=== PATIENT | male | born 1945 ===

== ENCOUNTER 2017-06-05 06:34 | Day surgery (SDC) | payer BC ==
[2017-06-05 06:34] VITALS: BMI 30.2
--- NOTE | 2017-06-05 07:20 | ED PDOC ---
Arrival/HPI - General Chief Complaint: Chest Pain Time Seen by Provider: 06/05/17 07:04 Historian: Patient, Family - History of Present Illness Narrative History of Present Illness (Text): you were treated in the ED today for hx of HTN, HL, DM,. CAD with x3 stents and had abnormal myocardial spect perfusion test with 72% ejection fraction and now having about 1 day of right/mid-sternal chest pain which is sharp, intermittent but otherwise without any nausea/vomiting/headache/dizziness/chest pain/abdomen pain/numbness/tingling/loss of limb function/pain with urination/ travel/prior blood clots/cancer/drug use/smoking. 06/05/17 07:18 Time/Duration: 24 hours Symptom Onset: Gradual Symptom Course: Intermittent Quality: Aching, Other (sharp) Severity Level: 2 Activities at Onset: Rest Context: Sitting Past Medical History - Provider Review Nursing Documentation Reviewed: Yes - Travel History Have you recently traveled outside [place] w/in the past 3 mons?: No - Infectious Disease Hx of Infectious Diseases: None - Cardiac Hx TX: Yes Hx Hypertension: Yes - Neurological Hx Paralysis: No - Hematological/Oncological Hx Blood Transfusions: No Hx Blood Transfusion Reaction: No - Musculoskeletal/Rheumatological Hx Musculoskeletal Disorders: No - Psychiatric Hx Emotional Abuse: No Hx Physical Abuse: No Hx Substance Use: No - Surgical History Hx Cardiac Catheterization: Yes (stent) - Anesthesia Hx Anesthesia Reactions: No Hx Malignant Hyperthermia: No - Suicidal Assessment Feels Threatened In Home Enviroment: No Family/Social History - Physician Review Nursing Documentation Reviewed: Yes Family/Social History: No Known Family HX Smoking Status: Unknown If Ever Smoked Hx Alcohol Use: No Hx Substance Use: No Allergies/Home Meds Allergies/Adverse Reactions: Allergies No Known Allergies Allergy (Verified 09/10/12 08:38) Home Medications: Home Meds Medication Instructions Recorded Confirmed Atorvastatin Calcium 40 mg PO DAILY 09/10/12 06/05/17 Clopidogrel [Plavix] 75 mg PO DAILY 09/10/12 06/05/17 Fenofibric Acid (Choline) 160 mg PO DAILY 09/10/12 06/05/17 [Trilipix] Glimepiride 4 mg PO BID 09/10/12 06/05/17 Ezetimibe [Zetia] 10 mg PO DAILY 09/01/14 06/05/17 Metformin HCl [Metformin] 1,000 mg PO BID 09/01/14 06/05/17 Aspirin [Aspirin Chewable] 81 mg PO DAILY 06/05/17 06/05/17 Azilsartan Med/Chlorthalidone 1 tab PO DAILY 06/05/17 06/05/17 [Edarbyclor 40-25 mg Tablet] Empagliflozin [Jardiance] 25 mg PO DAILY 06/05/17 06/05/17 amLODIPine [Norvasc] 5 mg PO DAILY 06/05/17 06/05/17 Review of Systems - Review of Systems Constitutional: Normal Eyes: Normal ENT: Normal Respiratory: Normal Cardiovascular: Chest Pain Gastrointestinal: Normal Genitourinary Male: Normal Musculoskeletal: Normal Skin: Normal Neurological: Normal Endocrine: Normal Hemo/Lymphatic: Normal Psychiatric: Normal Physical Exam Vital Signs Reviewed: Yes Vital Signs Temp Pulse Resp BP Pulse Ox 06/05/17 07:47 97.9 F 86 18 116/62 94 L Appearance: Positive for: Well-Appearing, Non-Toxic, Comfortable Pain Distress: Mild Mental Status: Positive for: Alert and Oriented X 3 - Systems Exam Head: Present: Atraumatic, Normocephalic Pupils: Present: PERRL Extroacular Muscles: Present: EOMI Conjunctiva: Present: Normal Ears: Present: Normal Mouth: Present: Moist Mucous Membranes Pharnyx: Present: Normal Nose (Internal): Present: Normal Inspection Neck: Present: Normal Range of Motion Respiratory/Chest: Present: Clear to Auscultation, Good Air Exchange Cardiovascular: No: Regular Rate and Rhythm, Murmurs, Normal S1, S2, Irregular Rhythm, Peripheal Pulses Present, Tachycardic, Bradycardic, Rub, Gallop, Muffled , Other Back: Present: Normal Inspection Upper Extremity: Present: Normal Inspection Lower Extremity: Present: Normal Inspection Neurological: Present: GCS=15, CN II-XII Intact, Speech Normal, Motor Func Grossly Intact Skin: Present: Warm, Normal Color Psychiatric: Present: Alert, Oriented x 3, Normal Insight, Normal Concentration Medical Decision Making ED Course and Treatment: you were treated in the ED today for hx of HTN, HL, DM,. CAD with x3 stents and takes aspirin 81mg and plavix 75mg daily but didn't take today and had abnormal myocardial spect perfusion test with 72% ejection fraction 12/21/15 and now having about 1 day of right/mid-sternal chest pain which is sharp, intermittent but otherwise without any nausea/vomiting/headache/dizziness/chest pain/abdomen pain/numbness/tingling/loss of limb function/pain with urination/travel/prior blood clots/cancer/drug use/smoking. You were otherwise breathing easily, smiling and talking with your and daughter, good strength/sensation, walking easily, clear lungs, no abdomen tenderness, no fever temp 97.9, stable heart rate 86, stable breathing rate 18, stable oxygen level 94% room air, stable blood pressure 116/62 which we recommend repeat in 2-3 days primary care office to determine further treatment, you have blood tests no infection count 8 , stable blood level hemoglobin 16/platelets 309, stable chemistry, except for bun 36/creatinine 1.8 increased from prior 1.2, heart blood test 0.02, radiology chest xray no acute, ECG sinus rhythm, aspirin, plavix, observation done in the ED with improvement, d/w Dr. Caruso who accepted for cath procedure and will coordinate post-procedure admission Reassessment Condition: Re-examined, Improved - Lab Interpretations Lab Results: 06/05/17 06:53 06/05/17 06:53 Lab Results 06/05/17 06:53: PT 11.0, INR 0.96, APTT 35.9 06/05/17 06:53: Sodium 141, Potassium 3.6, Chloride 106, Carbon Dioxide 23, Anion Gap 16, BUN 28 H, Creatinine 1.8 H, Est GFR ( Amer) 45, Est GFR ( Non-Af Amer) 37, Random Glucose 136 H, Calcium 8.9, Magnesium 2.3 H, Total Bilirubin 0.5, AST 25, ALT 30, Alkaline Phosphatase 75, Lactate Dehydrogenase 311 L, Total Creatine Kinase 153, Troponin I Pending, NT-Pro-B Natriuret Pep Pending, Total Protein 7.5, Albumin 4.2, Globulin 3.3, Albumin/Globulin Ratio 1.3 06/05/17 06:53: WBC 8.5, RBC 5.65, Hgb 16.3, Hct 48.0, MCV 85.0, MCH 28.8, MCHC 34.0, RDW 14.7 H, Plt Count 309, MPV 9.5, Gran % 47.7 L, Lymph % (Auto) 30.0, [place] % (Auto) 6.4 H, Eos % (Auto) 15.4 H, Baso % (Auto) 0.5, Gran # 4.05, Lymph # (Auto) 2.6, [place] # (Auto) 0.5, Eos # (Auto) 1.3 H, Baso # (Auto) 0.04 I have reviewed the lab results: Yes - RAD Interpretation Radiology Orders: 06/05/17 07:16 CHEST PORTABLE [RAD] Stat Refrigeration Supervisor: ED Physician (cxr no acute), Radiologist - EKG Interpretation Interpreted by ED Physician: Yes (SR with PVCs, flipped t waves avr, avl) Type: 12 lead EKG - Medication Orders Current Medication Orders: Discontinued Medications Aspirin (Aspirin) 325 mg PO STAT STA Stop: 06/05/17 07:16 Clopidogrel Bisulfate (Plavix) 75 mg PO STAT STA Stop: 06/05/17 07:18 - Scribe Statement The provider has reviewed the documentation as recorded by the Scribe Disposition/Present on Arrival - Present on Arrival Any Indicators Present on Arrival: No History of DVT/PE: No History of Uncontrolled Diabetes: No Urinary Catheter: No History of Decub. Ulcer: No History Surgical Site Infection Following: None - Disposition Have Diagnosis and Disposition been Completed?: Yes Diagnosis: Chest pain Disposition: HOSPITALIZED Disposition Time: 08:10 Patient Plan: Admission, Telemetry Condition: IMPROVED Discharge Instructions (ExitCare): Chest Pain (ED) Forms: [employer] (I[place]ic)
[2017-06-05 07:36] LABS: BASO # 0.04 K/mm3 (0.0-2.0); BASO % 0.5 % (0.0-3.0); EOS # 1.3 (0.0-0.7); EOS % 15.4 % (1.5-5.0); GRAN # 4.05 (1.4-6.5); GRAN % 47.7 % (50.0-68.0); HEMOGLOBIN 16.3 g/dL (14.0-18.0); LYMPH # 2.6 (1.2-3.4); MEAN CORPUSCULAR HEMOGLOBIN 28.8 pg (25.0-35.0); MEAN PLATELET VOLUME 9.5 fl (7.0-11.0); MONO # 0.5 (0.1-0.6); MONO % 6.4 % (1.0-6.0); RBC 5.65 10^6/uL (3.5-6.1); RED CELL DISTRIBUTION WIDTH 14.7 % (11.5-14.5); WHITE BLOOD COUNT 8.5 10^3/ul (4.5-11.0)
[2017-06-05 07:41] LABS: INR 0.96 (0.93-1.08); PARTIAL THROMBOPLASTIN TIME 35.9 Seconds (25.1-36.5)
[2017-06-05 07:54] LABS: ALB/GLOB RATIO 1.3 (1.1-1.8); ALBUMIN 4.2 g/dL (3.0-4.8); CALCIUM 8.9 mg/dL (8.4-10.5)
[2017-06-05 08:01] VITALS: O2SAT 95
[2017-06-05 08:04] LABS: B-TYPE NATRIURETIC PEPTIDE 76.6 pg/mL (0-450); TROPONIN I 0.02 ng/mL
[2017-06-05] MEDS: Sodium Chloride 0.9% 1,000 ML IV SCH ×2 (08:13→11:21)
[2017-06-05] MEDS ORDERED: Lidocaine 2% Inj (20ml) ONE (08:32)
[2017-06-05] MEDS ORDERED: Iodixanol 320 MG/ML 200 ML BOTTLE IV ONE (08:33)
[2017-06-05] MEDS ORDERED: Midazolam 2 MG/2 ML VIAL ONE ×2 (08:33→09:40)
[2017-06-05] MEDS ORDERED: Sodium Bicarbonate (8.4%) 50 Meq Syringe IVP ONE (08:38)
--- NOTE | 2017-06-05 09:06 | RAD ---
HISTORY: 72yoM, chest pain COMPARISON: No prior. FINDINGS: LUNGS: No active pulmonary disease. PLEURA: No significant pleural effusion identified, no pneumothorax apparent. CARDIOVASCULAR: No radiographic findings to suggest acute or significant cardiovascular disease. OSSEOUS STRUCTURES: No significant abnormalities. VISUALIZED UPPER ABDOMEN: Normal. OTHER FINDINGS: None. IMPRESSION: No active disease.
--- NOTE | 2017-06-05 09:11 | CARD ---
APPROVED REPORT EKG Measurement Heart [id number] <Conclusion> Sinus rhythm with frequent premature ventricular complexes in a pattern of bigeminy Possible Left atrial enlargement.
--- NOTE | 2017-06-05 14:45 | CARDCATH ---
PROCEDURE DATE: 06/05/2017 HISTORY: The patient is a 72-year-old male with multiple cardiac risk factors including hypertension, diabetes mellitus and hypercholesterolemia, who presented to the emergency room with progressive shortness of breath and angina. Because of his high probability and documented coronary artery disease in the past, he was brought to the [facility] for an emergent cardiac catheterization. PROCEDURE: Left heart catheterization with coronary arteriography and left ventriculogram. The right femoral artery was cannulated with a 6-[place] sheath. There were no complications. I performed moderate sedation, which included the presence of an independent trained observer that assisted in monitoring the patient's level of consciousness and physiologic status. After administration of Versed and fentanyl, my intra service time was 15 minutes. The patient's creatinine was found to be 1.8. He was pretreated with IV bicarb as well as aggressive hydration including normal saline for over a liter. The findings on catheterization revealed a left ventricle that was globally hypokinetic. Estimated ejection fraction is approximately 45%. His coronary anatomy revealed a right dominant circulation. The RCA revealed a patent stent in the proximal portion. In the midportion of the RCA, there was a 50-60% stenosis noted. The left main artery was unremarkable. The LAD revealed a patent stent and revealed intimal irregularities without critical lesions. The circumflex artery and obtuse marginal branches were free of significant disease. Angio-Seal was used to close the femoral artery site. The patient tolerated the procedure well. In summary, the procedure revealed, 1. Dilated cardiomyopathy from coronary artery disease and from his diabetes mellitus. 2. Patent stents in the RCA and LAD with a 50% stenosis in the mid RCA. 3. Diabetes mellitus. 4. Obesity. 5. Hypertension. 6. Hypercholesterolemia. Given these findings, I had an extensive discussion with the patient and family about the influence of diabetes on multiple organ now. Once again, I have discussed with him about the importance of a cardiac risk reduction program, a change in diet and weight loss. We will keep the patient on telemetry for aggressive hydration to reduce the chances of contrast nephropathy. Poncho Caruso MD
[2017-06-05 18:48] VITALS: BP 121/75; PULSE 45; RESP 18; TEMP 97.9
== END 2017-06-05 20:47 | disposition home or self-care (01) ==
LOC: ED 06:34 → CATH 08:17 → 2RNO 11:06 → CATH 20:47
PROVIDERS: ATTEND Internal Medicine Cardiovascular Disease
DX: I25.119 Atherosclerotic heart disease of native coronary artery with unspecified angina pectoris (principal); I42.0 Dilated cardiomyopathy; I10 Essential (primary) hypertension; E11.9 Type 2 diabetes mellitus without complications; E78.00 Pure hypercholesterolemia, unspecified; I25.2 Old myocardial infarction; E66.9 Obesity, unspecified; Z68.30 Body mass index [BMI] 30.0-30.9, adult; Z79.84 Long term (current) use of oral hypoglycemic drugs; Z95.5 Presence of coronary angioplasty implant and graft; Z79.82 Long term (current) use of aspirin
CPT/HCPCS: 71045; 80053; 82550; 82948; 83615; 83735; 83880; 84484; 85025; 85610; 85730; 86850; 86900; 93005; 93458; 99152; 99153; 99284; C1760; C1769; C2629; J1644; J2250; J3010; J7030; J7040; Q9966